=== PATIENT | female | born 1965 | race Caucasian/White ===

== ENCOUNTER 2025-05-13 23:10 | Emergency (ER) | payer SELFPAY ==
[~2025-05-13] VITALS: Ht 165.1 cm; Wt 45.4 kg
[2025-05-13] MEDS ORDERED: SODIUM CHLORIDE 0.9% 1000ML 1,000 ML IV SCH (23:30)
[2025-05-13] MEDS: SODIUM CHLORIDE 0.9% 1000ML 1,000 ML IV ONE (23:30)
[2025-05-13] MEDS: METOPROLOL TARTRATE INJ 1 MG/ML VIAL IV ONE (23:31)
[2025-05-13 23:47] LABS: BASOPHILS % 0.1 % (0.0-1.0); EOSINOPHILS % 0.4 % (0.0-6.0); LYMPHOCYTES % 19.3 % (18.0-39.1); MONOCYTES % 8.7 % (4.4-11.3); NEUTROPHILS % 71.3 % (38.7-80.0); RED CELL DISTRIBUTION WIDTH 12.0 % (11.7-14.4)
[2025-05-14 00:02] LABS: EST GLOMERULAR FILTRATION RATE 101 ML/MIN (>=60)
[2025-05-14 00:45] VITALS: PULSE 80; RESP 14; TEMP 98.2
[2025-05-14] MEDS ORDERED: HYDROXYZINE HCL25 MG PO (02:01)
[2025-05-14] MEDS: HYDROXYZINE HCL 25 MG TAB PO ONE (02:01)
[2025-05-14] MEDS ORDERED: METOPROLOL TART25 MG PO (02:01)
[2025-05-14 02:07] VITALS: BP 142/75; PULSE 77; RESP 21; TEMP 98.2; O2SAT 97
== END 2025-05-14 02:20 | disposition home or self-care (01) ==
LOC: ER 23:55
DX: F15.23 Other stimulant dependence with withdrawal (principal); R94.31 Abnormal electrocardiogram [ECG] [EKG]
CPT/HCPCS: 36415; 71045; 80053; 84484; 85025; 93005; 99284; J3410; J7030

== ENCOUNTER 2025-08-06 09:07 | Emergency (ER) | payer SELFPAY ==
[~2025-08-06] VITALS: Ht 165.1 cm; Wt 45.4 kg
[~2025-08-06 09:07] MED LIST: HYDROXYZINE HCL25 MG PO; METOPROLOL TART25 MG PO
[2025-08-06 09:16] VITALS: PULSE 73; RESP 16; TEMP 98.1
[2025-08-06 10:40] VITALS: BP 121/71; PULSE 70; O2SAT 99
== END 2025-08-06 10:18 | disposition home or self-care (01) ==
LOC: ER 09:09
DX: G47.00 Insomnia, unspecified (principal); F41.9 Anxiety disorder, unspecified
CPT/HCPCS: 93005; 99282